=== PATIENT | female | born 1975 | race Caucasian/White ===

== ENCOUNTER 2016-05-10 15:58 | Emergency (ER) | payer BC, OTHER ==
--- NOTE | 2016-05-10 16:37 | EDM.PDOC ---
ED HISTORY OF PRESENT ILLNESS - General Chief Complaint: Respiratory Problem Stated Complaint: SOB, FATIGUE Time Seen by Provider: 05/10/16 16:20 Source: Reports: Patient History Limitations: Reports: No limitations - History of Present Illness INITIAL COMMENTS - FREE TEXT/NARRATIVE: 41 yo female with recent surgery for ileostomy placement for Crohn's Dz presents with SOB. Feels cold a lot. No def'n fever or cough. No calf pain or swelling. Is not a smoker. Is being tapered off prednisone currently. Sx's for a few days, has not been to the clinic for this. Is tapering off the prednisone slowly in 5 mg increments. Symptom Onset Date: 05/06/16 Timing/Duration: Reports: Day(s): Severity: moderate Location, General: Reports: chest Quality: Reports: Other (No pain) Improves with: Reports: Rest Worsens with: Reports: Other (exertion) Context, General: Reports: Other (Recent surgery for Crohn's, tapering off prednisone. ) Associated Symptoms: Reports: shortness of breath, other (feels cold, tired. ) Treatment(s) DEVELOPMENTAL THERAPIST: Reports: Other (see below) (none) - Related Data Allergies/ADRs: Allergies Allergy/AdvReac Type Severity Reaction Status Date / Time No Known Allergies Allergy Verified 05/10/16 17:36 Home Meds: Home Meds predniSONE [Prednisone] 20 mg PO DAILY 05/10/16 [History] ED ROS GENERAL - Review of Systems Review Of Systems: See Below Constitutional: Reports: chills, weakness, fatigue. Denies: fever HEENT: Reports: No symptoms Respiratory: Reports: Shortness of Breath. Denies: Wheezing, Pleuritic Chest Pain, Cough, Sputum, Hemoptysis Cardiovascular: Reports: No symptoms Endocrine: Reports: fatigue GI/Abdominal: Reports: Abdominal pain (At surgical site, still healing.) : Reports: no symptoms Musculoskeletal: Reports: no symptoms Skin: Reports: no symptoms Neurological: Reports: No Symptoms Psychiatric: Reports: No symptoms ED EXAM, GENERAL - Physical Exam Exam: See Below Exam Limited By: No limitations General Appearance: alert, WD/WN, no apparent distress Eye Exam: bilateral eye: normal inspection Ears: normal external exam, normal canal, hearing grossly normal Ear Exam: bilateral ear: auricle normal, canal normal Nose: normal inspection, normal mucosa, no blood Throat/Mouth: Normal inspection, Normal lips, Normal teeth, Normal oropharynx, Normal voice, No airway compromise Head: atraumatic, normocephalic Neck: normal inspection, supple, non-tender Respiratory/Chest: no respiratory distress, lungs clear, normal breath sounds, no accessory muscle use, chest non-tender Cardiovascular: no edema, no murmur, tachycardia GI/Abdominal: normal bowel sounds, soft, no distention, other (R sided ileostomy ) Back Exam: normal inspection, CVA tenderness (R). No: CVA tenderness (L), vertebral tenderness Extremities: normal inspection, normal range of motion, non-tender, no pedal edema. No: pedal edema, Gabriella's Sign Neurological: alert, oriented, CN II-XII intact, normal cognition, no motor/ sensory deficits Psychiatric: normal affect, normal mood Skin Exam: Warm, Dry, Intact, Normal color, No rash Lymphatic: no adenopathy Course - Vital Signs Text/Narrative:: Orthostats-positive LR 1000 ml IV x 2 Last Recorded V/S: Last Vital Signs Temp 36.8 C 05/10/16 21:37 Pulse 100 05/10/16 22:20 Resp 20 05/10/16 22:20 BP 104/56 L 05/10/16 22:20 Pulse Ox 98 05/10/16 22:20 Orthostatic Blood Pressure [ 94/74 Standing] Orthostatic Blood Pressure [ 97/52 Sitting] Orthostatic Blood Pressure [ 99/62 Supine] - Orders/Labs/Meds Labs: Laboratory Tests 05/10/16 05/10/16 05/10/16 Range/Units 16:45 16:45 16:45 WBC 16.4 H (4.5-12.0) X10-3/uL RBC 4.83 (3.23-5.20) x10(6)uL Hgb 14.3 (11.5-15.5) g/dL Hct 42.3 (30.0-51.3) % MCV 87.7 (80-96) fL MCH 29.6 (27.7-33.6) pg MCHC 33.8 (32.2-35.4) g/dL RDW 14.0 (11.5-15.5) % Plt Count 716 H (125-369) X10(3)uL D-Dimer, Quantitative 1170 H (100-400) ng/mL Sodium 128 L (135-145) mmol/L Potassium 3.9 (3.5-5.3) mmol/L Chloride 95 L (100-110) mmol/L Carbon Dioxide 19 L (23-29) mmol/L BUN 30 H (5-20) mg/dL Creatinine 1.2 (0.6-1.3) mg/dL Est Cr Clr Drug Dosing TNP Estimated GFR (MDRD) 49 L (>60) BUN/Creatinine Ratio 25.0 H (9-20) Glucose 115 (80-116) mg/dL Lactic Acid (0.5-2.2) mmol/L Calcium 9.5 (8.6-10.2) mg/dL TSH, Ultra Sensitive (0.4-5.5) nlU/mL 05/10/16 05/10/16 Range/Units 16:45 16:45 WBC (4.5-12.0) X10-3/uL RBC (3.23-5.20) x10(6)uL Hgb (11.5-15.5) g/dL Hct (30.0-51.3) % MCV (80-96) fL MCH (27.7-33.6) pg MCHC (32.2-35.4) g/dL RDW (11.5-15.5) % Plt Count (125-369) X10(3)uL D-Dimer, Quantitative (100-400) ng/mL Sodium (135-145) mmol/L Potassium (3.5-5.3) mmol/L Chloride (100-110) mmol/L Carbon Dioxide (23-29) mmol/L BUN (5-20) mg/dL Creatinine (0.6-1.3) mg/dL Est Cr Clr Drug Dosing Estimated GFR (MDRD) (>60) BUN/Creatinine Ratio (9-20) Glucose (80-116) mg/dL Lactic Acid 3.8 H (0.5-2.2) mmol/L Calcium (8.6-10.2) mg/dL TSH, Ultra Sensitive 1.01 (0.4-5.5) nlU/mL Meds: Medications Discontinued Medications Generic Name Dose Route Start Last Admin Trade Name Freq PRN Reason Stop Dose Admin Enoxaparin Sodium 90 mg 05/11/16 09:00 Lovenox SUBCUT DAILY OSMEL Enoxaparin Sodium 90 mg 05/11/16 22:10 05/10/16 22:13 Lovenox SUBCUT 05/11/16 22:11 90 mg ONETIME ONE Administration Hydrocortisone Sodium Succinate 100 mg 05/10/16 17:29 05/10/16 18:00 Solu-Cortef IVPUSH 05/10/16 17:30 100 mg ONETIME ONE Administration Hydrocortisone Sodium Succinate Confirm 05/10/16 17:59 05/10/16 19:16 Solu-Cortef Administered 05/10/16 18:00 Not Given Dose 100 mg .ROUTE .STK-MED ONE Lactated Ringer's 1,000 mls @ 1,000 mls/hr 05/10/16 17:27 05/10/16 17:50 Ringers, Lactated IV 05/10/16 18:26 1,000 mls/hr BOLUS ONE Administration Lactated Ringer's 1,000 mls @ 1,000 mls/hr 05/10/16 18:41 05/10/16 19:15 Ringers, Lactated IV 05/10/16 19:40 1,000 mls/hr BOLUS ONE Administration Sodium Chloride 10 ml 05/10/16 17:35 05/10/16 17:49 Saline Flush FLUSH 10 ml ASDIRECTED PRN Administration Keep Vein Open Departure - Departure Time of Disposition: 19:00 Disposition: Still A Patient 30 Clinical Impression: Tachycardia, Orthostasis Dyspnea Qualifiers: Dyspnea type: dyspnea on exertion Qualified Code(s): R06.09 - Other forms of dyspnea Referrals: PCP,None [Primary Care Provider] - Forms: ED Department Discharge
[2016-05-10] MEDS ORDERED: Lactated Ringers 1,000 ML IV ONE ×2 (17:27→18:41)
[2016-05-10] MEDS ORDERED: Hydrocortisone Sodium Succinate 100 MG/2 ML SDV IVPUSH ONE (17:29)
[2016-05-10] MEDS ORDERED: Sodium Chloride 0.9% 10 ML Syringe FLUSH PRN (17:35)
[2016-05-10] MEDS ORDERED: Hydrocortisone Sodium Succinate 100 MG/2 ML SDV ONE (17:59)
[2016-05-10 22:22] VITALS: BP 104/56
--- NOTE | 2016-05-11 07:50 | ER ---
DATE SEEN: 05/10/2016 ADDENDUM: I was asked to see Milagros Little, 41-year-old female, who presented with shortness of breath. She was tachycardic upon admission, dehydrated, and was given 2 L of normal LR. D-dimer was elevated at 1,170, was unable to get a CT because no IV was available. An ultrasound of the lower extremities was negative. I elected to treat her with Lovenox empirically until she is able to get an opportunity to go to the ER at [facility] tomorrow morning for CT of the chest or V/Q scan to rule out pulmonary embolism, because she has significant risk factors (colectomy due to Crohn's disease two weeks ago at the [facility]). /[id number] MAYRA/ARLENE
[2016-05-11] MEDS ORDERED: Enoxaparin 100 MG/1 ML Syringe SUBCUT SCH (09:00)
--- NOTE | 2016-05-11 15:58 | US ---
INDICATION: Shortness of breath/unable to perform CT angiography of the chest/ evaluate for deep venous thrombosis in the lower extremities. DUPLEX ULTRASOUND, RIGHT LOWER EXTREMITY VEINS: Utilizing 2-D real time, duplex Doppler spectral analysis, and color flow imaging, examination of the right lower extremity veins revealed no evidence of deep venous thrombosis or obstruction. Compression views showed no abnormal lack of compression to suggest thrombosis. No evidence of incompetence of the valves was identified. IMPRESSION: 1. Duplex ultrasound, right lower extremity veins, shows no evidence of deep venous thrombosis. 2. No evidence of valvular incompetence. DUPLEX ULTRASOUND, LEFT LOWER EXTREMITY VEINS: Utilizing 2-D real time, duplex Doppler spectral analysis, and color flow imaging, examination of the left lower extremity veins revealed no evidence of deep venous thrombosis or obstruction. Compression views showed no abnormal lack of compression to suggest thrombosis. No evidence of incompetence of the valves was identified. IMPRESSION: 1. Duplex ultrasound, left lower extremity veins, shows no evidence of deep venous thrombosis. 2. No evidence of valvular incompetence. [facility]
[2016-05-11] MEDS ORDERED: Enoxaparin 100 MG/1 ML Syringe SUBCUT ONE (22:10)
== END 2016-05-10 22:20 | disposition still patient (30) ==
LOC: FB.ED 15:58
DX: R00.0 Tachycardia, unspecified (principal); R06.09 Other forms of dyspnea
CPT/HCPCS: 36415; 80048; 83605; 84443; 85027; 85379; 93970; 96361; 96372; 96374; 99285; J1650; J1720; J7050; J7120

== ENCOUNTER 2016-05-28 10:42 | Emergency (ER) | payer OTHER ==
--- NOTE | 2016-05-28 11:56 | EDM.PDOC ---
ED HPI GENERAL MEDICAL PROBLEM - General Chief Complaint: General Stated Complaint: DEHYDRATION Time Seen by Provider: 05/28/16 10:45 Source of Information: Reports: Patient, Family History Limitations: Reports: No limitations - History of Present Illness INITIAL COMMENTS - FREE TEXT/NARRATIVE: 41 years old w f with a history of crohns disease, S/P temp small bowel outlet 4 weeks ago, came to the ed due to being dehydrated. She was told by her surgeon Dr. Kohli, she can not absorb water and needs to be intravenously hydrated, occ. Pt's last visit for hydration was 05/26/2016. At that time her sodium was 129. Pt drinks tab water. This am, her ileastomy bag was "full of water" No N/V no Dizziness no other acute medical issues at this time. Onset: gradual Onset Date: 05/27/16 Onset Time: 08:00 Duration: Day(s):, Recurring Location: Reports: generalized Quality: Reports: Same as previous episode Improves with: Reports: None Worsens with: Reports: None Associated Symptoms: Reports: denies other symptoms - Related Data Allergies Allergy/AdvReac Type Severity Reaction Status Date / Time No Known Allergies Allergy Verified 05/10/16 17:36 Home Meds: Home Meds NK [No Known Home Meds] 05/28/16 [History] Past Medical History Gastrointestinal History: Reports: Other (see below) Other Gastrointestinal History: crohns [employer] History: Reports: - Infectious Disease History Infectious Disease History: Reports: Chicken pox - Past Surgical History GI Surgical History: Reports: Other (see below) Other GI Surgeries/Procedures: iliostomy Social & Family History - Tobacco Use Smoking Status *Q: Former Smoker Years of Tobacco use: 10 Packs/Tins Daily: 0.1 Used Tobacco, but Quit: Yes Month Tobacco Last Used: 07/3013 Second Hand Smoke Exposure: No - Caffeine Use Caffeine Use: Reports: None - Recreational Drug Use Recreational Drug Use: No ED ROS GENERAL - Review of Systems Review Of Systems: See Below Constitutional: Reports: other (feels dehydrated) HEENT: Reports: No symptoms Respiratory: Reports: No Symptoms Cardiovascular: Reports: No symptoms Endocrine: Reports: no symptoms GI/Abdominal: Reports: No symptoms : Reports: no symptoms Musculoskeletal: Reports: no symptoms Skin: Reports: no symptoms Neurological: Reports: No Symptoms Psychiatric: Reports: No symptoms Hematologic/Lymphatic: Reports: no symptoms Immunologic: Reports: no symptoms ED EXAM, GENERAL - Physical Exam Exam: See Below Exam Limited By: No limitations General Appearance: alert, WD/WN, mild distress Eye Exam: bilateral eye: normal inspection Ears: normal external exam, normal canal Ear Exam: bilateral ear: auricle normal Nose: normal inspection, normal mucosa, no blood Throat/Mouth: Normal lips, Other (dry oral mucosa) Head: atraumatic, normocephalic Neck: normal inspection, supple, non-tender, full range of motion Respiratory/Chest: no respiratory distress, lungs clear, normal breath sounds, no accessory muscle use, chest non-tender Cardiovascular: normal peripheral pulses, regular rate, rhythm, no edema Peripheral Pulses: 2+: femoral (L), femoral (R) GI/Abdominal: normal bowel sounds, other (ileostomy bag in place, porr surgical wound healing) (Female) Exam: Deferred Rectal (Female) Exam: Deferred Back Exam: normal inspection, full range of motion Extremities: normal inspection, normal range of motion, non-tender, no pedal edema Neurological: alert, oriented, CN II-XII intact, normal cognition, normal gait Psychiatric: normal affect, normal mood Skin Exam: Warm, Dry, Intact Lymphatic: no adenopathy Course - Vital Signs Text/Narrative:: 41 years old w f with a history of crohns disease, S/P temp small bowel outlet 4 weeks ago, came to the ed due to being dehydrated. She was told by her surgeon Dr. Kohli, she can not absorb water and needs to be intravenously hydrated, occ. Pt's last visit for hydration was 05/26/2016. At that time her sodium was 129. Pt drinks tab water. This am, her ileastomy bag was "full of water" No N/V no Dizziness no other acute medical issues at this time. PE: Dry mucosal membrane, decr. skin turgor Labs: Na 132 K 4.1 Impression: Dehydration Tx: NS Reexam: Improved Plan: D/C with instructions Last Recorded V/S: Last Vital Signs Temp 36.6 C 05/28/16 13:17 Pulse 97 05/28/16 13:17 Resp 18 05/28/16 13:17 BP 103/64 05/28/16 13:17 Pulse Ox 100 05/28/16 13:17 - Orders/Labs/Meds Labs: Laboratory Tests 05/28/16 05/28/16 05/28/16 Range/Units 11:15 11:20 11:20 WBC 10.0 (4.5-12.0) X10-3/uL RBC 4.00 (3.23-5.20) x10(6)uL Hgb 12.1 (11.5-15.5) g/dL Hct 35.5 (30.0-51.3) % MCV 88.7 (80-96) fL MCH 30.3 (27.7-33.6) pg MCHC 34.2 (32.2-35.4) g/dL RDW 14.5 (11.5-15.5) % Plt Count 316 (125-369) X10(3)uL MPV 6.7 L (7.4-10.4) fL Neut % (Auto) 74.6 (46-82) % Lymph % (Auto) 18.5 (13-37) % [place] % (Auto) 5.2 (4-12) % Eos % (Auto) 1 (1.0-5.0) % Baso % (Auto) 1 (0-2) % Neut # (Auto) 7.5 (1.6-8.3) # Lymph # (Auto) 1.8 (0.6-5.0) # [place] # (Auto) 0.5 (0.0-1.3) # Eos # (Auto) 0.1 (0.0-0.8) # Baso # (Auto) 0.1 (0.0-0.2) # Sodium 132 L (135-145) mmol/L Potassium 4.1 (3.5-5.3) mmol/L Chloride 102 (100-110) mmol/L Carbon Dioxide 21 L (23-29) mmol/L BUN 15 (5-20) mg/dL Creatinine 0.8 (0.6-1.3) mg/dL Est Cr Clr Drug Dosing TNP Estimated GFR (MDRD) > 60 (>60) BUN/Creatinine Ratio 18.8 (9-20) Glucose 108 (80-116) mg/dL Calcium 9.1 (8.6-10.2) mg/dL Total Bilirubin 0.4 (0.1-1.3) mg/dL Direct Bilirubin 0.1 (0.1-0.2) mg/dL AST 22 (5-27) IU/L ALT 25 D (14-26) IU/L Alkaline Phosphatase 86 (56-112) IU/L B-Natriuretic Peptide (0-100) pg/mL Total Protein 7.3 (6.0-8.0) g/dL Albumin 3.7 (3.5-5.2) g/dL Amylase 108 H (28-100) U/L Urine Color Yellow (YELLOW) Urine Appearance Clear (CLEAR) Urine pH 5.0 (5.0-6.5) Ur Specific [place] 1.025 (1.010-1.025) Urine Protein Negative (NEGATIVE) mg/dL Urine Glucose (UA) Normal (NEGATIVE) mg/dL Urine Ketones Negative (NEGATIVE) mg/dL Urine Occult Blood Negative (NEGATIVE) Urine Nitrite Negative (NEGATIVE) Urine Bilirubin Negative (NEGATIVE) Urine Urobilinogen Normal (NEGATIVE) mg/dL Ur Leukocyte Esterase Negative (NEGATIVE) Urine RBC 0-5 (0) Urine WBC 0-5 (0) Ur Squamous Epith Cells Many H (NS,R,O) Urine Bacteria Moderate H (NS) 05/28/16 Range/Units 11:20 WBC (4.5-12.0) X10-3/uL RBC (3.23-5.20) x10(6)uL Hgb (11.5-15.5) g/dL Hct (30.0-51.3) % MCV (80-96) fL MCH (27.7-33.6) pg MCHC (32.2-35.4) g/dL RDW (11.5-15.5) % Plt Count (125-369) X10(3)uL MPV (7.4-10.4) fL Neut % (Auto) (46-82) % Lymph % (Auto) (13-37) % [place] % (Auto) (4-12) % Eos % (Auto) (1.0-5.0) % Baso % (Auto) (0-2) % Neut # (Auto) (1.6-8.3) # Lymph # (Auto) (0.6-5.0) # [place] # (Auto) (0.0-1.3) # Eos # (Auto) (0.0-0.8) # Baso # (Auto) (0.0-0.2) # Sodium (135-145) mmol/L Potassium (3.5-5.3) mmol/L Chloride (100-110) mmol/L Carbon Dioxide (23-29) mmol/L BUN (5-20) mg/dL Creatinine (0.6-1.3) mg/dL Est Cr Clr Drug Dosing Estimated GFR (MDRD) (>60) BUN/Creatinine Ratio (9-20) Glucose (80-116) mg/dL Calcium (8.6-10.2) mg/dL Total Bilirubin (0.1-1.3) mg/dL Direct Bilirubin (0.1-0.2) mg/dL AST (5-27) IU/L ALT (14-26) IU/L Alkaline Phosphatase (56-112) IU/L B-Natriuretic Peptide 17 (0-100) pg/mL Total Protein (6.0-8.0) g/dL Albumin (3.5-5.2) g/dL Amylase (28-100) U/L Urine Color (YELLOW) Urine Appearance (CLEAR) Urine pH (5.0-6.5) Ur Specific [place] (1.010-1.025) Urine Protein (NEGATIVE) mg/dL Urine Glucose (UA) (NEGATIVE) mg/dL Urine Ketones (NEGATIVE) mg/dL Urine Occult Blood (NEGATIVE) Urine Nitrite (NEGATIVE) Urine Bilirubin (NEGATIVE) Urine Urobilinogen (NEGATIVE) mg/dL Ur Leukocyte Esterase (NEGATIVE) Urine RBC (0) Urine WBC (0) Ur Squamous Epith Cells (NS,R,O) Urine Bacteria (NS) Meds: Medications Discontinued Medications Generic Name Dose Route Start Last Admin Trade Name Freq PRN Reason Stop Dose Admin Sodium Chloride 1,000 mls @ 999 mls/hr 05/28/16 12:12 05/28/16 12:15 Normal Saline IV 05/28/16 13:12 999 mls/hr .BOLUS ONE Administration Sodium Chloride 10 ml 05/28/16 12:27 05/28/16 12:15 Saline Flush FLUSH 10 ml ASDIRECTED PRN Administration Keep Vein Open Departure - Departure Time of Disposition: 11:27 Disposition: Home, Self-Care 01 Condition: good Clinical Impression: Dehydration with hyponatremia Instructions: Hyponatremia Referrals: PCP,None [Primary Care Provider] - Forms: ED Department Discharge Additional Instructions: Please f/u with your PMD, Please come back to the ed if your symptoms get worse acutely.
[2016-05-28] MEDS ORDERED: Sodium Chloride 0.9% 1,000 ML IV ONE (12:12)
[2016-05-28] MEDS ORDERED: Sodium Chloride 0.9% 10 ML Syringe FLUSH PRN (12:27)
[2016-05-28 13:18] VITALS: BP 103/64
== END 2016-05-28 13:30 | disposition home or self-care (01) ==
LOC: FB.ED 10:42
DX: E87.1 Hypo-osmolality and hyponatremia (principal); E86.0 Dehydration; Z87.891 Personal history of nicotine dependence
CPT/HCPCS: 36415; 80048; 80076; 81001; 82150; 83880; 85025; 96360; 99283; J7040; J7050

== ENCOUNTER 2016-06-20 08:43 | Emergency (ER) | payer OTHER ==
[2016-06-20] MEDS ORDERED: Lactated Ringers 1,000 ML IV ONE ×2 (09:26→10:33)
[2016-06-20] MEDS ORDERED: Ondansetron 4 MG/2 ML SDV IVPUSH ONE (09:27)
[2016-06-20] MEDS ORDERED: Sodium Chloride 0.9% 10 ML Syringe FLUSH PRN (09:39)
[2016-06-20 11:30] VITALS: BP 94/63
--- NOTE | 2016-06-21 11:25 | ER ---
DATE SEEN: 06/20/2016 TIME SEEN: The patient was seen at 0915 hours. CHIEF COMPLAINT: Cramping, nausea, vomiting, and Crohn's disease. HISTORY OF PRESENT ILLNESS: This 41-year-old, 3, para 2-0-0-2, last menstrual period two weeks ago, comes in with the onset of history of nausea and cramping increased. She has this associated with dehydration. She has been followed by Dr. Kohli, [facility], with the surgery on 05/16/2016 with ileostomy placement for Crohn's disease. Dr. Kohli notes that she has poor absorption of electrolytes and fluids, and consequently, she is dehydrated intermittently. She has had 3 previous Crohn's surgeries, first appendectomy with Crohn's surgery resection in 1998; second in 2008, small loop of intestine was removed, and third on 05/16/2016, ileostomy with resection and placement of ileostomy loop. Patient has been off prednisone for a month. Had stopped Remicade in February of 2016 and is in hopes to have a revision of her ileostomy in July of this year. She has done reasonably well, but she has intermittent episodes of diarrhea. She has been without a fever or diarrhea. She has mild abdominal discomfort but not extensive. She has mild associated shortness of breath when she has this dehydration, otherwise she dose not have a history of DVTs or vascular pain in her legs. On 05/10/2016, she had a prednisone taper. This is significant because the [facility] would not do surgery until 3 months after the prednisone use. She is not on antibiotics. REVIEW OF SYSTEMS: Negative. She denies any history of oral ulcers, rectal bleeding, uveitis, erythema nodosum, aphthous ulcers, pyoderma gangrenosum, anal fissures and/or fistula. The patient has not been on azathioprine, methotrexate, infliximab, adalimumab, no recent Cipro, Flagyl, or budesonide. Latest agent was Remicade, which was stopped in February 2016. Review of systems is otherwise negative, except as noted above. PHYSICAL EXAMINATION: VITAL SIGNS: Blood pressure 100/53, heart rate 118, respirations 20, oxygen saturation 100%, temperature 36.3 degrees centigrade. HEENT: PERRLA intact. Pharynx without abnormality. Pharynx has mildly dry mucosa. GENERAL: Very pleasant personality. The patient is in mild distress and her smile is belying with her discomfort. She is able to breathe quite easily. LUNGS: Clear to auscultation without rales or rhonchi. HEART: S1, S2. No murmur. No irregular rate and rhythm. ABDOMEN: Soft, mild voluntary guarding. Bowel sounds slightly increased. No CVA percussion tenderness. She has a colostomy to the right, ileostomy bag to the right of the midline at the umbilical level. There is mild discomfort to the abdomen. No guarding. PELVIC: Not performed. RECTAL: Not performed. EXTREMITIES: Lower extremities without abnormality. No erythema nodosum nor is there any edema. Vascular pulses in upper and lower extremities normal. LABORATORY STUDIES: White count 11,800, PMNs 80, lymphocytes 13, monos 6, hemoglobin 12.7, platelets elevated at 567,000 (possibly related to chemotherapy and/or ulcerative colitis). Etiology for thrombocythemia indeterminate. She has hyponatremia, hypochloremia with decreased CO2-bicarb and iron secondary to vomiting, sodium 125, chloride 94, bicarb is 19, BUN 24, creatinine 1.4, GFR 41 (low), BUN and creatinine ratio is 17, AST 34, ALT 40, alkaline phosphatase 21, total protein 8.5. ASSESSMENT: Dehydration secondary to Crohn's surgery, ileostomy with poor proximal small bowel fluid electrolyte absorption secondary to short-bowel. 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 Takedown ileostomy not planned until July, (three months after she had last prednisone taper dose in April). Hypochloremia, hyponatremia secondary to vomiting. Probable mild metabolic alkalosis secondary to vomiting acids from the stomach and thrombocythemia. PLAN: The patient received 2 L of lactated Ringer's. She felt much better and will be discharged home. She was given a dose of Zofran in the ED. The patient has Zofran 10 tablets to take one as needed p.r.n., and she also has orders written for p.r.n. rehydration with 2 L of lactated Ringer's whenever she has oncoming vomiting and dehydration symptoms. Follow up with her doctor in a week. /[id number] RAMIRO/ARLENE
== END 2016-06-20 11:41 | disposition home or self-care (01) ==
LOC: FB.ED 08:43
DX: E87.1 Hypo-osmolality and hyponatremia (principal); E87.8 Other disorders of electrolyte and fluid balance, not elsewhere classified; E86.0 Dehydration; Z90.49 Acquired absence of other specified parts of digestive tract; Z98.890 Other specified postprocedural states
CPT/HCPCS: 36415; 80053; 81001; 85025; 96361; 96374; 99283; J2405; J7050; J7120

== ENCOUNTER 2016-11-30 17:14 | Emergency (ER) | payer OTHER ==
[2016-11-30] MEDS ORDERED: Alum Hydroxide/Mag Hydroxide 15 ML, Lidocaine 2% 15 ML PO ONE ×2 (18:02)
--- NOTE | 2016-11-30 18:08 | EDM.PDOC ---
ED HPI GENERAL MEDICAL PROBLEM - General Chief Complaint: Gastrointestinal Problem Stated Complaint: ABD PAINS Time Seen by Provider: 11/30/16 17:50 Source of Information: Reports: Patient, Old Records History Limitations: Reports: No Limitations - History of Present Illness INITIAL COMMENTS - FREE TEXT/NARRATIVE: 41 yo female with a pHx of Crohn's Dz presents with epigastric pain since late morning. Has tried Zantac and Tums without relief. Pain seems to wax and wane. Has nausea without vomiting. No change in bowels. Also has a pHx of SBO on more than one occasion with the last being in spring. No fever. No bleeding. No distention. No hx of pancreas issues. Drinks alcohol rarely. Onset: Today Onset Date: 11/30/16 Onset Time: 11:00 Duration: Hour(s):, Waxing/Waning Location: Reports: Abdomen (epigastrium) Quality: Reports: Ache Severity: Moderate (fluctuates significantly over time.) Improves with: Reports: None Worsens with: Reports: None Context: Reports: Other (Crohn's Dz.) Associated Symptoms: Reports: Nausea/Vomiting (mild nausea, no vomiting.). 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: Neurological History: Reports: Migraines, Seizure, Other (See Below) Other Neuro History: seizures from migraines Endocrine/Metabolic History: Reports: Vitamin D Deficiency Hematologic History: Reports: Anemia, B12 Deficiency, Blood Transfusion(s) Dermatologic History: Reports: Psoriasis - Infectious Disease History Infectious Disease History: Reports: Chicken Pox - Past Surgical History GI Surgical History: Reports: Appendectomy, Cholecystectomy, Colonoscopy, Colostomy, EGD, Small Bowel, Other (See Below) Female Surgical History: Reports: Other (See Below) Social & Family History - Tobacco Use Smoking Status *Q: Former Smoker Years of Tobacco use: 10 Packs/Tins Daily: 0.1 Used Tobacco, but Quit: Yes Month Tobacco Last Used: 2013 Second Hand Smoke Exposure: No - Caffeine Use Caffeine Use: Reports: Soda - Recreational Drug Use Recreational Drug Use: No ED ROS GENERAL - Review of Systems Review Of Systems: See Below Constitutional: Reports: No Symptoms. Denies: Fever, Diaphoresis HEENT: Reports: No Symptoms Respiratory: Reports: No Symptoms Cardiovascular: Reports: No Symptoms Endocrine: Reports: No Symptoms GI/Abdominal: Reports: Abdominal Pain. Denies: Black Stool, Bloody Stool, Constipation, Diarrhea, Distension, Hematemesis, Hematochezia, Melena, Nausea, Stool Incontinence, Vomiting : Reports: No Symptoms Musculoskeletal: Reports: No Symptoms Skin: Reports: No Symptoms Neurological: Reports: No Symptoms Psychiatric: Reports: No Symptoms ED EXAM, GI/ABD - Physical Exam Exam: See Below Exam Limited By: No Limitations General Appearance: Alert, WD/WN, No Apparent Distress Eyes: Bilateral: Normal Appearance Ears: Normal External Exam, Normal Canal, Hearing Grossly Normal Nose: Normal Inspection, Normal Mucosa, No Blood Throat/Mouth: Normal Inspection, Normal Lips, Normal Oropharynx, Normal Voice, No Airway Compromise Head: Atraumatic, Normocephalic Neck: Normal Inspection, Supple, Non-Tender Respiratory/Chest: No Respiratory Distress, Lungs Clear, Normal Breath Sounds, No Accessory Muscle Use Cardiovascular: Regular Rate, Rhythm, No Edema GI/Abdominal Exam: Normal Bowel Sounds, Soft, No Distention, Tender (epigastrium ) (Female) Exam: Normal External Exam Rectal (Female) Exam: Normal Exam Back Exam: Normal Inspection. No: CVA Tenderness (R), CVA Tenderness (L) Extremities: Normal Inspection, Normal Range of Motion, Non-Tender, No Pedal Edema Neurological: Alert, Oriented, CN II-XII Intact, Normal Cognition, No Motor/ Sensory Deficits Psychiatric: Normal Affect, Normal Mood Skin Exam: Warm, Dry, Intact, Normal Color, No Rash Lymphatic: No Adenopathy Course - Vital Signs Text/Narrative:: GI cocktail po-minimal change in her sx's. Dr. Sheth @ [facility] accepts at 2051h - Orders/Labs/Meds Orders: Active Orders 24 hr Category Date Time Status Abdomen Pelvis w Cont [CT] Stat Exams 11/30/16 19:40 Taken Lactated Ringers [Ringers, Lactated] 1,000 ml Med 11/30/16 18:45 Active IV ASDIRECTED Medication Orders Lactated Ringer's (Ringers, Lactated) 1,000 mls @ 150 mls/hr IV ASDIRECTED OSMEL Last Admin: 11/30/16 19:16 Dose: 150 mls/hr Labs: Laboratory Tests 11/30/16 11/30/16 11/30/16 Range/Units 18:50 18:50 18:50 WBC 12.2 H (4.5-12.0) X10-3/uL RBC 4.14 (3.23-5.20) x10(6)uL Hgb 11.7 (11.5-15.5) g/dL Hct 35.1 (30.0-51.3) % MCV 84.9 (80-96) fL MCH 28.2 (27.7-33.6) pg MCHC 33.3 (32.2-35.4) g/dL RDW 15.1 (11.5-15.5) % Plt Count 461 H (125-369) X10(3)uL Sodium 138 D (135-145) mmol/L Potassium 3.9 (3.5-5.3) mmol/L Chloride 103 D (100-110) mmol/L Carbon Dioxide 25 (23-29) mmol/L BUN 11 D (5-20) mg/dL Creatinine 0.8 (0.6-1.3) mg/dL Est Cr Clr Drug Dosing TNP Estimated GFR (MDRD) > 60 (>60) BUN/Creatinine Ratio 13.8 (9-20) Glucose 111 (80-116) mg/dL Calcium 9.2 (8.6-10.2) mg/dL Total Bilirubin 0.3 (0.1-1.3) mg/dL AST 17 D (5-27) IU/L ALT 13 L D (14-26) IU/L Alkaline Phosphatase 74 (56-112) IU/L Total Protein 7.5 (6.0-8.0) g/dL Albumin 3.9 (3.5-5.2) g/dL Globulin 3.6 g/dL Albumin/Globulin Ratio 1.1 Amylase 144 H (28-100) U/L Meds: Medications Generic Name Dose Route Start Last Admin Trade Name Freq PRN Reason Stop Dose Admin Lactated Ringer's 1,000 mls @ 150 mls/hr 11/30/16 18:45 11/30/16 19:16 Ringers, Lactated IV 150 mls/hr ASDIRECTED OSMEL Administration Discontinued Medications Generic Name Dose Route Start Last Admin Trade Name Jackie PRN Reason Stop Dose Admin Al Hydroxide/Mg Hydroxide 15 0 ml 11/30/16 18:02 11/30/16 18:19 ml/ Lidocaine HCl 15 ml PO 11/30/16 18:03 15 ml ONETIME ONE Administration Hydromorphone HCl 0.5 mg 11/30/16 18:32 11/30/16 19:07 Dilaudid IVPUSH 11/30/16 18:33 0.5 mg ONETIME ONE Administration Iopamidol 75 ml 11/30/16 19:49 11/30/16 20:11 Isovue-370 (76%) IV 11/30/16 19:50 58 ml ONETIME ONE Administration Metoclopramide HCl 10 mg 11/30/16 18:33 11/30/16 19:08 Reglan IVPUSH 11/30/16 18:34 10 mg ONETIME ONE Administration - Radiology Interpretation Free Text/Narrative:: CT abd/pelvis-likely SBO CT Results Date: 11/30/16 CT Results Time: 20:20 Departure - Departure Time of Disposition: 21:20 Disposition: DC/Tfer to Acute Hospital 02 Condition: Fair Clinical Impression: SBO (small bowel obstruction), Elevated amylase - Discharge Information Referrals: PCP,Not In Area [Primary Care Provider] - Forms: ED Department Discharge - My Orders Last 24 Hours: My Active Orders 11/30/16 18:45 Lactated Ringers [Ringers, Lactated] 1,000 ml IV ASDIRECTED 11/30/16 19:40 Abdomen Pelvis w Cont [CT] Stat - Assessment/Plan Last 24 Hours: My Active Orders 11/30/16 18:45 Lactated Ringers [Ringers, Lactated] 1,000 ml IV ASDIRECTED 11/30/16 19:40 Abdomen Pelvis w Cont [CT] Stat
[2016-11-30] MEDS ORDERED: HYDROmorphone 2 MG/ML SDV IVPUSH ONE (18:32)
[2016-11-30] MEDS ORDERED: Metoclopramide 10 MG/2 ML SDV IVPUSH ONE (18:33)
[2016-11-30] MEDS ORDERED: Lactated Ringers 1,000 ML IV SCH (18:45)
[2016-11-30] MEDS ORDERED: Iopamidol 755 Mg/ML 75 ML Bottle IV ONE (19:49)
[2016-11-30 21:25] VITALS: BP 136/87
== END 2016-11-30 21:10 ==
LOC: FB.ED 17:14
DX: K56.609 Unspecified intestinal obstruction, unspecified as to partial versus complete obstruction (principal); Z87.891 Personal history of nicotine dependence; Z90.49 Acquired absence of other specified parts of digestive tract
CPT/HCPCS: 36415; 74177; 80053; 82150; 85027; 96365; 96366; 96375; 99284; A9270; J1170; J2765; J7120; Q9967

== ENCOUNTER 2017-01-02 19:25 | Emergency (ER) | payer OTHER ==
[2017-01-02] MEDS ORDERED: Acetaminophen/HYDROcodone 325-5 MG Tab PO ONE ×2 (19:26→21:47)
[2017-01-02] MEDS ORDERED: Alum Hydroxide/Mag Hydroxide 15 ML, Lidocaine 2% 15 ML PO ONE ×2 (19:54)
--- NOTE | 2017-01-02 20:00 | EDM.PDOC ---
ED HPI GENERAL MEDICAL PROBLEM - General Chief Complaint: Abdominal Pain Stated Complaint: ABD PAIN Time Seen by Provider: 01/02/17 19:40 Source of Information: Reports: Patient, Old Records History Limitations: Reports: No Limitations - History of Present Illness INITIAL COMMENTS - FREE TEXT/NARRATIVE: 41 yo female presents with epigastric pain that began about 5 pm tonight. Began abruptly. No vomiting or change in stools. No fever. Was dx a couple weeks ago with gastritis also from the steroids she has been taking for her Chrohn's and is getting famotidine 40 mg daily for that. About a month ago was hospitalized for a couple days in [place] for a SBO that cleared with high dose steroids and NG suction. Was recently started on azathioprine and wonders if tonight's sx's are from that. 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) mid epigastric Pain Score (Numeric/FACES): 9 - Related Data Allergies Allergy/AdvReac Type Severity Reaction Status Date / Time No Known Allergies Allergy Verified 01/02/17 19:37 Home Meds: Home Meds Acetaminophen/HYDROcodone [Merlin 325-5 MG] 1 - 2 tab PO Q4H PRN #10 tab [Rx] Dicyclomine [Bentyl] 20 mg PO QIDACANDBED #20 tablet 01/02/17 [Rx] Famotidine [Pepcid] 40 mg PO BEDTIME 01/02/17 [History] Ketorolac [Toradol] 10 mg PO DAILY PRN 01/02/17 [History] Prednisone [IJD: Prednisone] 10 mg PO DAILY 01/02/17 [History] azaTHIOprine [Azathioprine] 125 mg PO DAILY 01/02/17 [History] Past Medical History Gastrointestinal History: Reports: Other (See Below) Other Gastrointestinal History: crohns x past 18 yrs Genitourinary History: Reports: 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: Neurological History: Reports: Migraines, Seizure, Other (See Below) Other Neuro History: seizures from migraines Endocrine/Metabolic History: Reports: Vitamin D Deficiency Hematologic History: Reports: Anemia, B12 Deficiency, Blood Transfusion(s) Dermatologic History: Reports: Psoriasis - Infectious Disease History Infectious Disease History: Reports: Chicken Pox - Past Surgical History GI Surgical History: Reports: Appendectomy, Cholecystectomy, Colonoscopy, Colostomy, EGD, Small Bowel, Other (See Below) Female Surgical History: Reports: Other (See Below) Social & Family History - Family History Family Medical History: Noncontributory - Tobacco Use Smoking Status *Q: Former Smoker Years of Tobacco use: 10 Packs/Tins Daily: 0.1 Used Tobacco, but Quit: Yes Month Tobacco Last Used: 2013 Second Hand Smoke Exposure: No - Caffeine Use Caffeine Use: Reports: Soda - Recreational Drug Use Recreational Drug Use: No ED ROS GENERAL - Review of Systems Review Of Systems: See Below Constitutional: Reports: No Symptoms HEENT: Reports: No Symptoms Respiratory: Reports: No Symptoms Cardiovascular: Reports: No Symptoms GI/Abdominal: Reports: Abdominal Pain. Denies: Black Stool, Bloody Stool, Constipation, Diarrhea, Distension, Flatus, Hematemesis, Hematochezia, Melena, Nausea, Vomiting : Reports: No Symptoms Musculoskeletal: Reports: No Symptoms Skin: Reports: No Symptoms Neurological: Reports: No Symptoms Psychiatric: Reports: No Symptoms ED EXAM, GI/ABD - Physical Exam Exam: See Below Exam Limited By: No Limitations General Appearance: Alert, WD/WN, No Apparent Distress Eyes: Bilateral: Normal Appearance Ears: Normal External Exam, Normal Canal, Hearing Grossly Normal Nose: Normal Inspection, Normal Mucosa, No Blood Throat/Mouth: Normal Inspection, Normal Lips, Normal Oropharynx, Normal Voice, No Airway Compromise Head: Atraumatic, Normocephalic Neck: Normal Inspection, Supple, Non-Tender Respiratory/Chest: No Respiratory Distress, Lungs Clear, Normal Breath Sounds, No Accessory Muscle Use Cardiovascular: Regular Rate, Rhythm, No Edema GI/Abdominal Exam: Soft, Tender (epigastrium), Abnormal Bowel Sounds (increased) Back Exam: Normal Inspection Extremities: Normal Inspection, Normal Range of Motion, Non-Tender, No Pedal Edema Neurological: Alert, Oriented, CN II-XII Intact, Normal Cognition, No Motor/ Sensory Deficits Psychiatric: Normal Affect, Normal Mood Skin Exam: Warm, Dry, Intact, Normal Color, No Rash Lymphatic: No Adenopathy Course - Vital Signs Text/Narrative:: GI cocktail-no change in pain. Last Recorded V/S: Last Vital Signs Temp 36.4 C 01/02/17 19:25 Pulse 78 01/02/17 19:25 Resp 17 01/02/17 19:25 BP 151/71 H 01/02/17 19:25 Pulse Ox 100 01/02/17 19:25 - Orders/Labs/Meds Orders: Active Orders 24 hr Category Date Time Status Abdomen 2V AP Flat Upright [CR] Stat Exams 01/02/17 20:10 Taken Labs: Laboratory Tests 01/02/17 01/02/17 Range/Units 20:20 20:20 WBC 14.6 H (4.5-12.0) X10-3/uL RBC 3.70 (3.23-5.20) x10(6)uL Hgb 10.7 L (11.5-15.5) g/dL Hct 33.0 (30.0-51.3) % MCV 89.2 (80-96) fL MCH 28.9 (27.7-33.6) pg MCHC 32.4 (32.2-35.4) g/dL RDW 15.9 H (11.5-15.5) % Plt Count 410 H (125-369) X10(3)uL Sodium 139 (135-145) mmol/L Potassium 3.5 (3.5-5.3) mmol/L Chloride 104 (100-110) mmol/L Carbon Dioxide 25 (23-29) mmol/L BUN 11 (5-20) mg/dL Creatinine 0.8 (0.6-1.3) mg/dL Est Cr Clr Drug Dosing 65.13 mL/min Estimated GFR (MDRD) > 60 (>60) BUN/Creatinine Ratio 13.8 (9-20) Glucose 108 (80-116) mg/dL Calcium 8.6 (8.6-10.2) mg/dL C-Reactive Protein < 0.5 (0.0-1.0) mg/dL Amylase 130 H (28-100) U/L Meds: Medications Discontinued Medications Generic Name Dose Route Start Last Admin Trade Name Freq PRN Reason Stop Dose Admin Hydrocodone Bitart/Acetaminophen 1 tab 01/02/17 21:47 Merlin 325-5 Mg PO 01/02/17 21:48 ONETIME ONE Al Hydroxide/Mg Hydroxide 15 0 ml 01/02/17 19:54 01/02/17 20:01 ml/ Lidocaine HCl 15 ml PO 01/02/17 19:55 30 ml ONETIME ONE Administration Dicyclomine HCl 20 mg 01/02/17 21:18 01/02/17 21:23 Bentyl PO 01/02/17 21:19 20 mg ONETIME ONE Administration Dicyclomine HCl 10 mg 01/02/17 21:47 Bentyl PO 01/02/17 21:48 ONETIME ONE Hydromorphone HCl 1 mg 01/02/17 20:10 01/02/17 20:32 Dilaudid IVPUSH 01/02/17 20:11 1 mg ONETIME ONE Administration Lactated Ringer's 1,000 mls @ 1,000 mls/hr 01/02/17 20:08 01/02/17 20:35 Ringers, Lactated IV 01/02/17 21:07 1,000 mls/hr BOLUS ONE Administration - Radiology Interpretation Free Text/Narrative:: Flat/upright abdomen-nonspecific gas pattern Departure - Departure Time of Disposition: 22:00 Disposition: Home, Self-Care 01 Condition: Fair Clinical Impression: Abdominal pain Qualifiers: Abdominal location: epigastric Qualified Code(s): R10.13 - Epigastric pain - Discharge Information Prescriptions: Acetaminophen/HYDROcodone [Merlin 325-5 MG] 1 - 2 tab PO Q4H PRN #10 tab PRN Reason: Pain Dicyclomine [Bentyl] 20 mg PO QIDACANDBED #20 tablet Referrals: PCP,None [Primary Care Provider] - Forms: ED Department Discharge Additional Instructions: Clear liquids only tonight. Call your GI provider tomorrow morning regarding your status. Take dicyclomine 20 mg every 6 hrs as needed for cramping. Take Merlin as directed for pain relief. Hold your azothioprine until you talk with your GI provider tomorrow. Continue your other meds as currently. - My Orders Last 24 Hours: My Active Orders 01/02/17 20:10 Abdomen 2V AP Flat Upright [CR] Stat - Assessment/Plan Last 24 Hours: My Active Orders 01/02/17 20:10 Abdomen 2V AP Flat Upright [CR] Stat
[2017-01-02] MEDS ORDERED: Lactated Ringers 1,000 ML IV ONE (20:08)
[2017-01-02] MEDS ORDERED: HYDROmorphone 2 MG/ML SDV IVPUSH ONE (20:10)
[2017-01-02] MEDS ORDERED: Dicyclomine 10 MG Cap PO ONE ×2 (21:18→21:47)
[2017-01-02 22:02] VITALS: BP 145/83
--- NOTE | 2017-01-03 11:06 | CR ---
INDICATION: Abdominal pain, recent small-bowel obstruction. History of Crohn' s disease. Sharp pain under sternum. ABDOMEN: Four images of the abdomen in supine and upright projections 2016 were compared with 12/29/2007, again revealing evidence of previous cholecystectomy. Grommets are noted overlying the pelvis. There is suggestion of a minimal dextroconvex rotoscoliosis of the upper middle lumbar spine. Evidence of previous bowel surgery is noted in the right lower quadrant - upper pelvis and right flank. A definite obstructive process is not identified, with gas throughout the colon and a few air-fluid levels in the colon of questionable significance, possibly representing paralytic ileus. There is mild prominence of the cecum with respect to the remainder of the bowel , which is of questionable significance. What appears to be the cecum lies in the right mid abdomen to mid abdomen area. No other suggestion of organomegaly, mass lesions, or pathologic calcifications was identified. IMPRESSION: Multiple surgeries are in evidence with evidence of bowel surgery in two locations, right flank and right lower quadrant, post cholecystectomy. No free air or definite mechanically obstructive process was seen. Blunting of the right costophrenic angle is noted, which could represent a small right pleural effusion and/or fibrosis. Fibrosis is also suggested at the left lung base with tenting of the diaphragm minimally in that area. Follow-up x-rays of the abdomen may be warranted, depending upon clinical course. MTDD
== END 2017-01-02 21:59 | disposition home or self-care (01) ==
LOC: FB.ED 19:25
DX: R10.13 Epigastric pain (principal); Z86.2 Personal history of diseases of the blood and blood-forming organs and certain disorders involving the immune mechanism; Z87.891 Personal history of nicotine dependence; Z79.899 Other long term (current) drug therapy
CPT/HCPCS: 36415; 74020; 80048; 82150; 85027; 86140; 96361; 96374; 99284; A9270; J1170; J7120

== ENCOUNTER 2017-05-18 09:05 | Emergency (ER) | payer OTHER ==
[2017-05-18] MEDS ORDERED: Sodium Chloride 0.9% 1,000 ML IV ONE (09:24)
[2017-05-18] MEDS ORDERED: Ondansetron 4 MG/2 ML SDV IVPUSH ONE (09:25)
[2017-05-18] MEDS ORDERED: Pantoprazole 40 MG Vial IVPUSH ONE (09:25)
[2017-05-18] MEDS ORDERED: Morphine 2 MG/ML Syringe IVPUSH ONE (09:27)
--- NOTE | 2017-05-18 09:28 | EDM.PDOC ---
ED HPI GENERAL MEDICAL PROBLEM - General Chief Complaint: Abdominal Pain Stated Complaint: RT SIDE PAIN Time Seen by Provider: 05/18/17 09:15 Source of Information: Reports: Patient History Limitations: Reports: No Limitations - History of Present Illness INITIAL COMMENTS - FREE TEXT/NARRATIVE: 42 y.o.w.f with H/O Crohn's disease, s/p cholecytextomy, appendectomy, came to the ed with her SO due to acute onset of pain at her RLQ of abdomen. No trauma, no dysuria. pt had diarrhea without blood in hr stool. No other acute medical issues. BP 139/96 RR 20 Pulse ox 98% on RA, Temp 36.7 pulse 105 Onset: Today Onset Date: 05/18/17 Onset Time: 04:00 Duration: Hour(s):, Intermittent Location: Reports: Abdomen Quality: Reports: Ache, Burning, Dull, Pressure, Stabbing, Throbbing Severity: Moderate Improves with: Reports: None Worsens with: Reports: None Context: Reports: Other (H/O ovarian cysts) Associated Symptoms: Reports: No Other Symptoms - Related Data Allergies Allergy/AdvReac Type Severity Reaction Status Date / Time No Known Allergies Allergy Verified 05/18/17 12:42 Home Meds: Home Meds azaTHIOprine [Azathioprine] 125 mg PO DAILY 01/02/17 [History] Adalimumab [Humira Pen Crohn-Uc-Hs Starter] 1 injection SQ Q14D 05/18/17 [ History] Tamsulosin HCl [Flomax] 0.4 mg PO DAILY #4 cap.er.24h 05/18/17 [Rx] Past Medical History Gastrointestinal History: Reports: Other (See Below) Other Gastrointestinal History: crohns x past 18 yrs Genitourinary History: Reports: None 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: Neurological History: Reports: Migraines, Seizure, Other (See Below) Other Neuro History: seizures from migraines Endocrine/Metabolic History: Reports: Vitamin D Deficiency Hematologic History: Reports: Anemia, B12 Deficiency, Blood Transfusion(s) Dermatologic History: Reports: Psoriasis - Infectious Disease History Infectious Disease History: Reports: Chicken Pox - Past Surgical History GI Surgical History: Reports: Appendectomy, Cholecystectomy, Colonoscopy, Colostomy, EGD, Small Bowel, Other (See Below) Female Surgical History: Reports: Other (See Below) Social & Family History - Family History Family Medical History: Noncontributory - Tobacco Use Smoking Status *Q: Former Smoker Years of Tobacco use: 10 Packs/Tins Daily: 0.1 Used Tobacco, but Quit: Yes Month/Year Tobacco Last Used: 2013 Second Hand Smoke Exposure: No - Caffeine Use Caffeine Use: Reports: Soda - Recreational Drug Use Recreational Drug Use: No ED ROS GENERAL - Review of Systems Review Of Systems: See Below Constitutional: Reports: No Symptoms HEENT: Reports: No Symptoms Respiratory: Reports: No Symptoms Cardiovascular: Reports: No Symptoms Endocrine: Reports: No Symptoms GI/Abdominal: Reports: Abdominal Pain (RLQ) : Reports: No Symptoms Musculoskeletal: Reports: No Symptoms Skin: Reports: No Symptoms Neurological: Reports: No Symptoms Hematologic/Lymphatic: Reports: No Symptoms Immunologic: Reports: No Symptoms ED EXAM, GI/ABD - Physical Exam Exam: See Below Exam Limited By: No Limitations General Appearance: Alert, WD/WN, Mild Distress Eyes: Bilateral: Normal Appearance Ears: Normal External Exam, Normal Canal Nose: Normal Inspection, Normal Mucosa, No Blood Throat/Mouth: Normal Lips, Normal Voice, No Airway Compromise, Other (dry mucosal membrane) Head: Atraumatic, Normocephalic Neck: Normal Inspection, Supple, Non-Tender, Full Range of Motion, Limited Range of Motion Respiratory/Chest: No Respiratory Distress, Lungs Clear, Normal Breath Sounds, Chest Non-Tender Cardiovascular: Normal Peripheral Pulses, Regular Rate, Rhythm, No Edema, No Gallop, No JVD, No Murmur, No Rub GI/Abdominal Exam: Normal Bowel Sounds, Soft, Non-Tender (Female) Exam: Deferred Rectal (Female) Exam: Deferred Back Exam: Normal Inspection Extremities: Normal Inspection, Normal Range of Motion, Non-Tender, No Pedal Edema, Normal Capillary Refill Neurological: Alert, Oriented, CN II-XII Intact, Normal Cognition, Normal Gait Psychiatric: Normal Affect, Normal Mood Skin Exam: Warm, Dry, Intact, Normal Color, No Rash Lymphatic: No Adenopathy Course - Vital Signs Text/Narrative:: 42 y.o.w.f with H/O Crohn's disease, s/p cholecytextomy, appendectomy, came to the ed with her SO due to acute onset of pain at her RLQ of abdomen. No trauma, no dysuria. pt had diarrhea without blood in hr stool. No other acute medical issues. BP 139/96 RR 20 Pulse ox 98% on RA, Temp 36.7 pulse 105 PE: WNWD W F with Crohn's diasease and acute RLQ abd. pain, H/O ovarian cysts Imaging: HS pelvis: Bilat ovarian cysts. CT abd/pelvis: Urolithiasis at right UVJ, 2.5 mm. Labs: BMP nl WBC, HCG/HGB nl UA pos for kavitha. hematuria. Impression: Urolithiasis, Kavitha hematuria. Dehydration Tx: Toradol, Flomax. NS Reexam: Pt was pain free after the meds were given. Pt may have passed the stone. Plan: D/C with instructions Last Recorded V/S: Last Vital Signs Temp 36.9 C 05/18/17 11:50 Pulse 86 05/18/17 11:50 Resp 16 05/18/17 11:50 BP 113/66 05/18/17 11:50 Pulse Ox 100 05/18/17 11:50 - Orders/Labs/Meds Orders: Active Orders 24 hr Category Date Time Status Pelvis Non OB Ltd [US] Stat Exams 05/18/17 09:34 Taken Renal Comp [US] Stat Exams 05/18/17 10:58 Taken Transvaginal Non OB [US] Stat Exams 05/18/17 09:34 Taken Labs: Laboratory Tests 05/18/17 05/18/17 05/18/17 Range/Units 09:35 09:35 09:35 WBC 6.4 (4.5-12.0) X10-3/uL RBC 3.81 (3.23-5.20) x10(6)uL Hgb 11.8 (11.5-15.5) g/dL Hct 34.6 (30.0-51.3) % MCV 90.7 (80-96) fL MCH 30.9 (27.7-33.6) pg MCHC 34.1 (32.2-35.4) g/dL RDW 15.6 H (11.5-15.5) % Plt Count 371 H (125-369) X10(3)uL MPV 6.6 L (7.4-10.4) fL Neut % (Auto) 69.9 (46-82) % Lymph % (Auto) 24.8 (13-37) % Winston % (Auto) 3.6 L (4-12) % Eos % (Auto) 1 (1.0-5.0) % Baso % (Auto) 0 (0-2) % Neut # (Auto) 4.5 (1.6-8.3) # Lymph # (Auto) 1.6 (0.6-5.0) # Winston # (Auto) 0.2 (0.0-1.3) # Eos # (Auto) 0.1 (0.0-0.8) # Baso # (Auto) 0.0 (0.0-0.2) # PT 10.0 (8.7-11.1) INR 0.99 (0.89-1.13) Sodium 140 (135-145) mmol/L Potassium 3.7 (3.5-5.3) mmol/L Chloride 106 (100-110) mmol/L Carbon Dioxide 22 (21-32) mmol/L BUN 9 (7-18) mg/dL Creatinine 0.9 (0.55-1.02) mg/dL Est Cr Clr Drug Dosing 57.30 mL/min Estimated GFR (MDRD) > 60 (>60) BUN/Creatinine Ratio 10.0 (9-20) Glucose 129 H (80-116) mg/dL Calcium 8.9 (8.6-10.2) mg/dL NT-Pro-B Natriuret Pep (<=125) pg/mL Urine Color (YELLOW) Urine Appearance (CLEAR) Urine pH (5.0-6.5) Ur Specific Raccoon (1.010-1.025) Urine Protein (NEGATIVE) mg/dL Urine Glucose (UA) (NEGATIVE) mg/dL Urine Ketones (NEGATIVE) mg/dL Urine Occult Blood (NEGATIVE) Urine Nitrite (NEGATIVE) Urine Bilirubin (NEGATIVE) Urine Urobilinogen (NEGATIVE) mg/dL Ur Leukocyte Esterase (NEGATIVE) Urine RBC (0) Urine WBC (0) Ur Squamous Epith Cells (NS,R,O) Calcium Oxalate Crystal (NS) Urine Bacteria (NS) 05/18/17 05/18/17 Range/Units 09:35 10:10 WBC (4.5-12.0) X10-3/uL RBC (3.23-5.20) x10(6)uL Hgb (11.5-15.5) g/dL Hct (30.0-51.3) % MCV (80-96) fL MCH (27.7-33.6) pg MCHC (32.2-35.4) g/dL RDW (11.5-15.5) % Plt Count (125-369) X10(3)uL MPV (7.4-10.4) fL Neut % (Auto) (46-82) % Lymph % (Auto) (13-37) % Winston % (Auto) (4-12) % Eos % (Auto) (1.0-5.0) % Baso % (Auto) (0-2) % Neut # (Auto) (1.6-8.3) # Lymph # (Auto) (0.6-5.0) # Winston # (Auto) (0.0-1.3) # Eos # (Auto) (0.0-0.8) # Baso # (Auto) (0.0-0.2) # PT (8.7-11.1) INR (0.89-1.13) Sodium (135-145) mmol/L Potassium (3.5-5.3) mmol/L Chloride (100-110) mmol/L Carbon Dioxide (21-32) mmol/L BUN (7-18) mg/dL Creatinine (0.55-1.02) mg/dL Est Cr Clr Drug Dosing mL/min Estimated GFR (MDRD) (>60) BUN/Creatinine Ratio (9-20) Glucose (80-116) mg/dL Calcium (8.6-10.2) mg/dL NT-Pro-B Natriuret Pep 66 (<=125) pg/mL Urine Color Yellow (YELLOW) Urine Appearance Slightly cloudy (CLEAR) Urine pH 5.0 (5.0-6.5) Ur Specific Raccoon 1.030 H (1.010-1.025) Urine Protein Negative (NEGATIVE) mg/dL Urine Glucose (UA) Normal (NEGATIVE) mg/dL Urine Ketones Negative (NEGATIVE) mg/dL Urine Occult Blood Large H (NEGATIVE) Urine Nitrite Negative (NEGATIVE) Urine Bilirubin Small H (NEGATIVE) Urine Urobilinogen Normal (NEGATIVE) mg/dL Ur Leukocyte Esterase Negative (NEGATIVE) Urine RBC 50-75 H (0) Urine WBC 0-5 (0) Ur Squamous Epith Cells Few H (NS,R,O) Calcium Oxalate Crystal Occasional H (NS) Urine Bacteria Moderate H (NS) Meds: Medications Discontinued Medications Generic Name Dose Route Start Last Admin Trade Name Jackie PRN Reason Stop Dose Admin Sodium Chloride 1,000 mls @ 999 mls/hr 05/18/17 09:24 05/18/17 09:35 Normal Saline IV 05/18/17 10:24 999 mls/hr .BOLUS ONE Administration Sodium Chloride 250 mls @ 0 mls/hr 05/18/17 11:00 05/18/17 10:56 Normal Saline IV 20 mls/hr ASDIRECTED OSMEL Administration KVO Ketorolac Tromethamine 30 mg 05/18/17 10:25 05/18/17 10:31 Toradol IVPUSH 05/18/17 10:26 30 mg ONETIME ONE Administration Morphine Sulfate 2 mg 05/18/17 09:27 05/18/17 09:42 Morphine IVPUSH 05/18/17 09:28 2 mg ONETIME ONE Administration Ondansetron HCl 8 mg 05/18/17 09:25 05/18/17 09:44 Zofran IVPUSH 05/18/17 09:26 8 mg ONETIME ONE Administration Pantoprazole Sodium 40 mg 05/18/17 09:25 05/18/17 10:33 Protonix Iv IVPUSH 05/18/17 09:26 40 mg ONETIME ONE Administration Tamsulosin HCl 0.4 mg 05/18/17 11:28 05/18/17 11:39 Flomax PO 05/18/17 11:29 0.4 mg ONETIME ONE Administration Departure - Departure Time of Disposition: 11:53 Disposition: Home, Self-Care 01 Condition: Good Clinical Impression: Urolithiasis Qualifiers: Urinary calculus location: ureter Qualified Code(s): N20.1 - Calculus of ureter Ovarian cyst Qualifiers: Laterality: bilateral Qualified Code(s): N83.201 - Unspecified ovarian cyst, right side - Discharge Information Prescriptions: Tamsulosin HCl [Flomax] 0.4 mg PO DAILY #4 cap.er.24h Referrals: PCP,None [Primary Care Provider] - Forms: ED Department Discharge Additional Instructions: Please take Flomax as recommended, Motrin for pain, please f/u, come back if your symptoms get worse acutely. - My Orders Last 24 Hours: My Active Orders 05/18/17 09:34 Pelvis Non OB Ltd [US] Stat Transvaginal Non OB [US] Stat 05/18/17 10:58 Renal Comp [US] Stat - Assessment/Plan Last 24 Hours: My Active Orders 05/18/17 09:34 Pelvis Non OB Ltd [US] Stat Transvaginal Non OB [US] Stat 05/18/17 10:58 Renal Comp [US] Stat
[2017-05-18] MEDS ORDERED: Ketorolac 30 MG/ML SDV IVPUSH ONE (10:25)
[2017-05-18] MEDS ORDERED: Tetracaine HCl/PF 0.5% 4 ML Bottle EYERT ONE (10:39)
[2017-05-18] MEDS ORDERED: Sodium Chloride 0.9% 250 ML IV SCH (11:00)
[2017-05-18] MEDS ORDERED: Tamsulosin 0.4 MG Cap.ER PO ONE (11:28)
--- NOTE | 2017-05-18 12:22 | CT ---
INDICATION: Right flank pain, hydronephrosis on the right by ultrasound. History of Crohn's disease [address] ABDOMEN AND PELVIS WITHOUT CONTRAST: Spiral 1.25-mm axial sections were obtained through the abdomen without contrast, utilizing renal calculus protocol , 05/18/2017, and were compared with 11/30/2016. Hydronephrosis is noted on the right with hydroureter and fat stranding about the dilated ureter and renal pelvis, down to the level of the ureterovesical junction. At the ureterovesical junction area, there is a 2.5-mm calcific density which likely represents an obstructing calculus. This could have moved into the urinary bladder at this time or just after this time, and should be correlated clinically in that regard. No additional calculi were seen in the kidneys. No definite renal masses were seen. There is renal fascial thickening on the right, compatible with the obstruction. Multiple cysts are noted at the right ovary, the largest approximately 45 mm. They have a simple appearance and likely represent follicular cysts. Follow-up ultrasound of the pelvis in 2 weeks should be confirmatory. Additionally, a 38-mm probable follicular cyst is noted at the left ovary. The urinary bladder appeared grossly normal, but is not well distended. No definite uterine abnormality was seen. No evidence of bowel obstruction or free air was seen. Surgery is noted in the right lower quadrant - upper pelvis on the right, with multiple clips present. The appendix is not definitely visualized. The gallbladder is absent, compatible with history of its removal. No gross liver abnormality was seen. A definite active infiltrate or effusion was not identified in the lower lung ayon and pleural spaces visualized. The heart did not appear grossly enlarged. The adrenal glands appear to be normal. The left kidney had a normal appearance. The spleen and pancreas appeared normal, with a somewhat bulbous tail of the pancreas, likely a normal variant. The common bile duct was normal in caliber in the head of the pancreas, allowing for the post cholecystectomy status. No retroperitoneal masses were identified. Minimal aortic calcification is noted. No other organomegaly, mass lesions, or free fluid collections were identified in the abdomen or pelvis. Evidence of a previous ileostomy or colostomy is noted in the right upper middle pelvis. This apparently has been taken down. IMPRESSION: 1. Obstructive uropathy on the right due to a 2.5-mm calculus in the area of the right ureterovesical junction. 2. Post cholecystectomy. 3. Multiple ovarian cysts. Follow-up ultrasound in 2 weeks recommended for confirmation of physiologic status. 4. Multiple sites of bowel surgery in this patient with history of Crohn's disease. Report was called to Dr. Alan at 1154 hours, 05/18/2017. Total Exam DLP = 405.72 mGy-cm. MTDD
[2017-05-18 12:23] VITALS: BP 113/66
--- NOTE | 2017-05-19 08:35 | US ---
INDICATION: Right flank pain. RENAL ULTRASOUND, COMPLETE: Multiple ultrasonic images of the kidneys were obtained 05/18/2017. Right kidney: 10.1 x 4.1 x 3.7 cm. Left kidney: 10.1 x 4.1 x 4.1 cm. Hydronephrosis is noted at the right kidney compatible with obstructive uropathy. There is suggestion of slight irregularity of the renal cortex, suggesting mild renal cortical scarring bilaterally, perhaps slightly more prominent on the left than right. The left kidney was otherwise unremarkable. No evidence of left obstructive uropathy was seen. IMPRESSION: Obstructive uropathy right kidney - pyelocaliectasis. MTDD
--- NOTE | 2017-05-19 09:19 | US ---
INDICATION: Right lower quadrant abdominal pain. History of ovarian cysts. ULTRASOUND OF THE PELVIS, NON-OB, LIMITED: Multiple ultrasonic images were obtained with the transabdominal probe and revealed two adjacent cystic structures or one cystic structure with a septum at the right ovary. The right ovary, including the cysts, measured approximately 4.9 x 3.9 cm transversely. The cystic structures taken together measure approximately 29 x 48 mm with a septum across the center. A maximum diameter taken together was approximately 48 mm. These likely represent follicular cysts. However, follow-up study in 2 weeks is recommended for confirmation of involution. The uterus measured 8.5 x 5.1 x 5.1 cm, with suggestion of an anterior myometrial mass, not well visualized, impressing on the endometrium, which appears prominent. The endometrial cavity echo appears to be approximately 21 mm. It is heterogeneous. There may be a degree of hemorrhage present or simply this may be on the basis of menstrual cycle. Again, follow-up in 2 weeks may be helpful for confirmation. No adnexal mass lesions or free fluid collections were identified. IMPRESSION: 1. Cystic masses noted at the right ovary/versus one larger mass with a septum. The left ovary was not as well delineated. There may be a cystic mass there. Endovaginal probe ultrasound should be of further diagnostic benefit. 2. Possible anterior myometrial mass with impingement on the endometrium, which appears prominent. The prominence may be on the basis of menstrual cycle , but should be correlated clinically. Follow-up is recommended with pelvic ultrasound in 2 weeks. Endovaginal probe ultrasound will also be obtained for further evaluation at this time. INDICATION: Right lower quadrant abdominal pain. History of ovarian cysts - need better visualization of the uterus and ovaries than was possible with the transabdominal probe. TRANSVAGINAL PELVIC ULTRASOUND: Utilizing transvaginal probe, multiple ultrasonic images revealed the uterus to measure 8.5 x 5.1 x 5.1 cm. The endometrial cavity echo was approximately 15 mm. The presence of an abnormal area of echogenicity in the anterior myometrium, measuring approximately 4.1 x 1.4 x 2.5 cm with some blood flow, suggests the possibility of a fibroid in that area. It appears to be impinging on the endometrial cavity somewhat on some of the images. The endometrial cavity echo is enlarged and heterogeneous. There may be endometrial pathology, and follow-up ultrasound in 2 weeks is recommended for further evaluation depending upon clinical course. The right ovary measured 4.9 x 4.2 x 3.9 cm and showed evidence of a purely cystic mass, except for what appears to be a septum extending through the cystic mass. The possibility this actually represents two adjacent cysts would also be a consideration. These may represent follicular cysts. Close follow- up is recommended, however, with this appearance, with a follow-up ultrasound in 2 weeks for further evaluation. The left ovary measured 2.7 x 3.1 x 2.5 cm and included a cystic mass which most likely represents a follicular cyst, which measures approximately 33 mm in maximum diameter. No adnexal mass lesion or free fluid collection was demonstrated. IMPRESSION: 1. Bilateral cystic masses in the ovaries, largest on the right with either a septum or two adjacent follicular cysts. Follow-up in 2 weeks is recommended to further evaluate these cystic structures. 2. Probable anterior myometrial mass, compatible with a fibroid impinging somewhat on the endometrial cavity, which is enlarged and heterogeneous. This should also be followed up at the time of the further evaluation for the ovarian cysts. Other than benign disease is felt to be unlikely, but cannot be excluded. MTDD
== END 2017-05-18 12:05 | disposition home or self-care (01) ==
LOC: FB.ED 09:05
DX: N83.201 Unspecified ovarian cyst, right side (principal); N83.202 Unspecified ovarian cyst, left side; N20.1 Calculus of ureter; E86.0 Dehydration; Z90.49 Acquired absence of other specified parts of digestive tract; Z79.899 Other long term (current) drug therapy; Z87.891 Personal history of nicotine dependence
CPT/HCPCS: 36415; 74176; 76770; 76830; 76857; 80048; 81001; 83880; 85025; 85610; 96361; 96374; 96375; 99284; A9270-GY; C9113; J1885; J2270; J2405; J7040; J7050

== ENCOUNTER 2017-09-06 17:07 | Emergency (ER) | payer OTHER ==
--- NOTE | 2017-09-06 17:43 | EDM.PDOC ---
ED HPI GENERAL MEDICAL PROBLEM - General Chief Complaint: Abdominal Pain Stated Complaint: ADB PAIN Time Seen by Provider: 09/06/17 17:30 Source of Information: Reports: Patient, Old Records - History of Present Illness INITIAL COMMENTS - FREE TEXT/NARRATIVE: Milagros comes to [facility] ED with a 24 hr hx of epigastric pains, nonradiating, and emesis x 3 since last evening. She has a 19 year hx of Crohns Disease, and was hospitalized in [place] for SBO just 1 year ago. Her sxs appear to resemble last years experience, and she wants evaluated. There is no hemetemsis, nausea, fever , abdominal distention, or back pain. She has had small stools today. She has tried no meds. - Related Data Allergies Allergy/AdvReac Type Severity Reaction Status Date / Time No Known Allergies Allergy Verified 09/06/17 17:13 Home Meds: Home Meds azaTHIOprine [Azathioprine] 125 mg PO DAILY 01/02/17 [History] Adalimumab [Humira Pen Crohn-Uc-Hs Starter] 1 injection SQ Q14D 05/18/17 [ History] Past Medical History Gastrointestinal History: Reports: Other (See Below) Other Gastrointestinal History: crohns x past 18 yrs Genitourinary History: Reports: None BACK CLOSER History: Reports: Other BACK CLOSER History: States history of ovarian cysts. Neurological History: Reports: Migraines, Seizure, Other (See Below) Other Neuro History: seizures from migraines Endocrine/Metabolic History: Reports: Vitamin D Deficiency Hematologic History: Reports: Anemia, B12 Deficiency, Blood Transfusion(s) Dermatologic History: Reports: Psoriasis - Infectious Disease History Infectious Disease History: Reports: Chicken Pox - Past Surgical History GI Surgical History: Reports: Appendectomy, Cholecystectomy, Colonoscopy, Colostomy, EGD, Small Bowel, Other (See Below) Female Surgical History: Reports: Other (See Below) Social & Family History - Family History Family Medical History: Noncontributory - Caffeine Use Caffeine Use: Reports: Soda ED ROS GENERAL - Review of Systems Review Of Systems: See Below Constitutional: Reports: Decreased Appetite HEENT: Reports: No Symptoms Respiratory: Reports: No Symptoms Cardiovascular: Reports: No Symptoms Endocrine: Reports: No Symptoms GI/Abdominal: Reports: Decreased Appetite, Nausea, Vomiting : Reports: No Symptoms Musculoskeletal: Reports: No Symptoms Skin: Reports: No Symptoms Neurological: Reports: No Symptoms Psychiatric: Reports: No Symptoms Hematologic/Lymphatic: Reports: No Symptoms Immunologic: Reports: No Symptoms ED EXAM, GI/ABD - Physical Exam Exam: See Below Exam Limited By: No Limitations General Appearance: Alert, WD/WN, No Apparent Distress Eyes: Bilateral: Normal Appearance, EOMI Ears: Normal External Exam Nose: Normal Inspection Throat/Mouth: Normal Inspection, Normal Oropharynx Head: Normocephalic, Other Neck: Normal Inspection Respiratory/Chest: Lungs Clear, Normal Breath Sounds Cardiovascular: Regular Rate, Rhythm, No Murmur GI/Abdominal Exam: Normal Bowel Sounds, Soft, No Organomegaly, No Distention, No Mass, Tender (mild tenderness in epigastrium) (Female) Exam: Deferred Rectal (Female) Exam: Deferred Back Exam: Normal Inspection Extremities: Normal Inspection Neurological: Alert, Oriented, CN II-XII Intact, Normal Cognition, No Motor/ Sensory Deficits Psychiatric: Normal Affect, Normal Mood Skin Exam: Warm, Dry, Intact, Normal Color, No Rash Course - Vital Signs Text/Narrative:: I proceeded with F&U Abd series, and was reviewed with radiologist, no findings for obstruction at this time. Screening labs were performed and baseline. Options discussed including repeat Abd-Pelvic CT w contrast, and patient opted for returning home to try clear liquids and advance as tolerated. - Orders/Labs/Meds Orders: Active Orders 24 hr Category Date Time Status Abdomen 2V AP Flat Upright [CR] Stat Exams 09/06/17 17:39 Ordered Labs: Laboratory Tests 09/06/17 09/06/17 Range/Units 18:40 18:40 WBC 6.0 (4.5-12.0) X10-3/uL RBC 3.72 (3.23-5.20) x10(6)uL Hgb 11.8 (11.5-15.5) g/dL Hct 36.0 (30.0-51.3) % MCV 96.7 H (80-96) fL MCH 31.7 (27.7-33.6) pg MCHC 32.8 (32.2-35.4) g/dL RDW 15.0 (11.5-15.5) % Plt Count 337 (125-369) X10(3)uL MPV 7.0 L (7.4-10.4) fL Neut % (Auto) 65.7 (46-82) % Lymph % (Auto) 26.5 (13-37) % [place] % (Auto) 5.7 (4-12) % Eos % (Auto) 1 (1.0-5.0) % Baso % (Auto) 1 (0-2) % Neut # (Auto) 4.0 (1.6-8.3) # Lymph # (Auto) 1.6 (0.6-5.0) # [place] # (Auto) 0.3 (0.0-1.3) # Eos # (Auto) 0.1 (0.0-0.8) # Baso # (Auto) 0.0 (0.0-0.2) # Sodium 140 (135-145) mmol/L Potassium 3.5 (3.5-5.3) mmol/L Chloride 103 (100-110) mmol/L Carbon Dioxide 26 (21-32) mmol/L BUN 11 (7-18) mg/dL Creatinine 0.9 (0.55-1.02) mg/dL Est Cr Clr Drug Dosing TNP Estimated GFR (MDRD) > 60 (>60) BUN/Creatinine Ratio 12.2 (9-20) Glucose 92 (80-116) mg/dL Calcium 8.6 (8.6-10.2) mg/dL Departure - Departure Time of Disposition: 19:16 Disposition: Home, Self-Care 01 Condition: Fair Clinical Impression: Crohns disease Qualifiers: Gastrointestinal tract location: unspecified location Digestive disease complication type: without complication Qualified Code(s): K50.90 - Crohn's disease, unspecified, without complications - Discharge Information *PRESCRIPTION DRUG MONITORING PROGRAM REVIEWED*: No *COPY OF PRESCRIPTION DRUG MONITORING REPORT IN PATIENT MIO: No Instructions: Crohn Disease Referrals: PCP,Not In Area [Primary Care Provider] - Forms: ED Department Discharge Care Plan Goals: Clear liquids and advance as tolerated Return to Ed if symptoms continue Take Tylenol as needed for pain - Problem List & Annotations (1) Abdominal pain SNOMED Code(s): 65211502 Code(s): R10.9 - UNSPECIFIED ABDOMINAL PAIN Status: Acute Current Visit: No Annotation/Comment:: Consider clear liquid diet, and advance as tolerated. Return to ED if any relapse of sxs overnight. Qualifiers: Abdominal location: epigastric Qualified Code(s): R10.13 - Epigastric pain (2) Crohns disease SNOMED Code(s): 87365251 Code(s): K50.90 - CROHN'S DISEASE, UNSPECIFIED, WITHOUT COMPLICATIONS Status: Acute Current Visit: Yes Annotation/Comment:: Continue currrent managment. Qualifiers: Gastrointestinal tract location: unspecified location Digestive disease complication type: without complication Qualified Code(s): K50.90 - Crohn's disease, unspecified, without complications - My Orders Last 24 Hours: My Active Orders 09/06/17 17:39 Abdomen 2V AP Flat Upright [CR] Stat - Assessment/Plan Last 24 Hours: My Active Orders 09/06/17 17:39 Abdomen 2V AP Flat Upright [CR] Stat Plan: Follow up in ED overnight if sxs escalate or vomiting resumes.
[2017-09-06 20:22] VITALS: BP 140/78
--- NOTE | 2017-09-07 08:07 | CR ---
INDICATION: Epigastric pain, 19 year history of Crohns disease, epigastric pain with 3 episodes of vomiting last night, concerns for partial small bowel obstruction, history of previous bowel surgeries. ABDOMEN: Supine and upright views of the abdomen were obtained 09/06/2017 and compared with 01/02/2017, again revealing evidence of multiple abdominal surgeries, as seen previously. There are some minimal air fluid levels in the right flank with no distention of the bowel in that area. Slightly distended loops times two of the jejunum are noted of questionable significance. The possibility of a paralytic ileus or gastroenteritis would be a consideration. Mechanically obstructive process could be very early or partial. No free air was identified. Findings should be correlated clinically. Followup x-rays may be helpful for further evaluation, depending upon clinical course. No mass lesions, organomegaly, or pathologic calcifications were noted. What appears to be a tampon is noted in place. IMPRESSION: Mildly distended jejunal loops with no air fluid levels in that area. Findings may be physiologic for this specific patient. Followup studies may be warranted, depending upon clinical course. Report was called to Dr. Lane at 1837 hours on 09/06/2017. RASHADD
== END 2017-09-06 19:30 | disposition home or self-care (01) ==
LOC: FB.ED 17:07
DX: K50.90 Crohn's disease, unspecified, without complications (principal); Z79.899 Other long term (current) drug therapy
CPT/HCPCS: 36415; 74019; 80048; 85025; 99284